=== PATIENT | female | born 1995 | race Caucasian/White ===

== ENCOUNTER 2019-04-25 00:01 | Emergency (ER) | payer MEDICAID, OTHER ==
--- NOTE | 2019-04-25 00:19 | EDM.PDOC ---
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 She said that she has had the cramping for the last 1 week and because she was late for her. She checked a home test was positive. She's had no upper abdominal pain no flank pain no urinary complaints no vomiting no diarrhea and no nausea. She' s had no vaginal bleeding or discharge and denies STD risks or a history of STD. She is a one para 0 and by her dates she would be 5 weeks 4 days if . Patient says that she was told by friends that she had cramping and she was that she should come into the ED. She says the cramping is bilateral and does not localize right or left she has no frequency urgency or dysuria Review of systems: As per history of present illness and below otherwise all systems reviewed and negative. Past medical history: As per history of present illness and as reviewed below otherwise noncontributory. Surgical history: As per history of present illness and as reviewed below otherwise noncontributory. Social history: No reported history of drug or alcohol abuse. Family history: As per history of present illness and as reviewed below otherwise noncontributory. Physical exam: General: Well-developed well-nourished female who is nontoxic and vital signs are noted by me HEENT: Atraumatic, normocephalic, , negative for conjunctival pallor or scleral icterus, mucous membranes moist, throat clear, neck supple, nontender, trachea midline. Lungs: Clear to auscultation, breath sounds equal bilaterally, chest nontender. Heart: S1S2, regular rate and rhythm no overt murmurs Abdomen: Soft, nondistended, nontender. Negative for masses or hepatosplenomegaly. Negative for costovertebral tenderness. Bowel sounds are normoactive and there is actually no tenderness rebound or guarding on my examination Pelvis: Stable nontender. Genitourinary: Deferred. Rectal: Deferred. Extremities: Atraumatic, negative for cords or calf pain. Neurovascular unremarkable. Neuro: Awake, alert, oriented. Cranial nerves II through XII unremarkable. Cerebellum unremarkable. Motor and sensory unremarkable throughout. Exam nonfocal. Diagnostics: CBC UA with reflex ABO Rh serum quantitative hCG CMP Therapeutics: 0128: Case was discussed with Dr. Altamirano who is on-call for OB and says that in light of her resulting history or physical exam and her testing results she would not do an emergent ultrasound and that they would be able to do that in the clinic next week. She said that she should be cautioned to return to the ED for changes in her clinical statement such as increased pain localization of pain or vaginal bleeding and I relayed this conversation to the patient. She is aware that she should be on pelvic rest and reasons to return. Impression: Pelvic pain in early Definitive disposition and diagnosis as appropriate pending reevaluation and review of above. Abdominal Pain Score (Numeric/FACES): 4 - Related Data Allergies Allergy/AdvReac Type Severity Reaction Status Date / Time No Known Allergies Allergy Verified 04/25/19 00:14 Home Meds: Home Meds . [No Known Home Meds] 04/25/19 [History] ED ROS GENERAL - Review of Systems Review Of Systems: ROS reveals no pertinent complaints other than HPI. ED EXAM, GENERAL - Physical Exam Exam: See Below (See dictation) Course - Vital Signs Last Recorded V/S: Last Vital Signs Temp 36.5 C 04/25/19 00:14 Pulse 83 04/25/19 00:14 Resp 18 04/25/19 00:14 BP 125/80 04/25/19 00:14 Pulse Ox 98 04/25/19 00:14 - Orders/Labs/Meds Labs: Laboratory Tests 04/25/19 04/25/19 04/25/19 Range/Units 00:05 00:24 00:24 WBC 11.18 H (4.0-11.0) K/uL RBC 4.39 (4.30-5.90) M/uL Hgb 13.5 (12.0-16.0) g/dL Hct 39.2 (36.0-46.0) % MCV 89.3 (80.0-98.0) fL MCH 30.8 (27.0-32.0) pg MCHC 34.4 (31.0-37.0) g/dL RDW Std Deviation 43.0 (28.0-62.0) fl RDW Coeff of Annamarie 13 (11.0-15.0) % Plt Count 274 (150-400) K/uL MPV 9.50 (7.40-12.00) fL Neut % (Auto) 63.3 (48.0-80.0) % Lymph % (Auto) 24.2 (16.0-40.0) % [place] % (Auto) 10.1 (0.0-15.0) % Eos % (Auto) 2.1 (0.0-7.0) % Baso % (Auto) 0.3 (0.0-1.5) % Neut # (Auto) 7.1 H (1.4-5.7) K/uL Lymph # (Auto) 2.7 H (0.6-2.4) K/uL [place] # (Auto) 1.1 H (0.0-0.8) K/uL Eos # (Auto) 0.2 (0.0-0.7) K/uL Baso # (Auto) 0.0 (0.0-0.1) K/uL Sodium (136-145) mmol/L Potassium (3.5-5.1) mmol/L Chloride (98-107) mmol/L Carbon Dioxide (21.0-32.0) mmol/L BUN (7.0-18.0) mg/dL Creatinine (0.6-1.0) mg/dL Est Cr Clr Drug Dosing mL/min Estimated GFR (MDRD) ml/min Glucose (74-106) mg/dL Calcium (8.5-10.1) mg/dL Total Bilirubin (0.2-1.0) mg/dL AST (15-37) IU/L ALT (14-63) IU/L Alkaline Phosphatase (46-116) U/L Total Protein (6.4-8.2) g/dL Albumin (3.4-5.0) g/dL Globulin (2.6-4.0) g/dL Albumin/Globulin Ratio (0.9-1.6) HCG, Quant 6332.0 mIU/mL Urine Color YELLOW Urine Appearance CLEAR Urine pH 6.0 (5.0-8.0) Ur Specific [place] 1.020 (1.001-1.035) Urine Protein NEGATIVE (NEGATIVE) mg/dL Urine Glucose (UA) NEGATIVE (NEGATIVE) mg/dL Urine Ketones NEGATIVE (NEGATIVE) mg/dL Urine Occult Blood NEGATIVE (NEGATIVE) Urine Nitrite NEGATIVE (NEGATIVE) Urine Bilirubin NEGATIVE (NEGATIVE) Urine Urobilinogen 0.2 (<2.0) EU/dL Ur Leukocyte Esterase NEGATIVE (NEGATIVE) Blood Type 04/25/19 04/25/19 Range/Units 00:24 00:24 WBC (4.0-11.0) K/uL RBC (4.30-5.90) M/uL Hgb (12.0-16.0) g/dL Hct (36.0-46.0) % MCV (80.0-98.0) fL MCH (27.0-32.0) pg MCHC (31.0-37.0) g/dL RDW Std Deviation (28.0-62.0) fl RDW Coeff of Annamarie (11.0-15.0) % Plt Count (150-400) K/uL MPV (7.40-12.00) fL Neut % (Auto) (48.0-80.0) % Lymph % (Auto) (16.0-40.0) % [place] % (Auto) (0.0-15.0) % Eos % (Auto) (0.0-7.0) % Baso % (Auto) (0.0-1.5) % Neut # (Auto) (1.4-5.7) K/uL Lymph # (Auto) (0.6-2.4) K/uL [place] # (Auto) (0.0-0.8) K/uL Eos # (Auto) (0.0-0.7) K/uL Baso # (Auto) (0.0-0.1) K/uL Sodium 136 (136-145) mmol/L Potassium 3.8 (3.5-5.1) mmol/L Chloride 104 (98-107) mmol/L Carbon Dioxide 20.7 L (21.0-32.0) mmol/L BUN 17 (7.0-18.0) mg/dL Creatinine 0.8 (0.6-1.0) mg/dL Est Cr Clr Drug Dosing 96.73 mL/min Estimated GFR (MDRD) > 60.0 ml/min Glucose 95 (74-106) mg/dL Calcium 9.8 (8.5-10.1) mg/dL Total Bilirubin 0.2 (0.2-1.0) mg/dL AST 22 (15-37) IU/L ALT 42 (14-63) IU/L Alkaline Phosphatase 62 (46-116) U/L Total Protein 7.7 (6.4-8.2) g/dL Albumin 4.0 (3.4-5.0) g/dL Globulin 3.7 (2.6-4.0) g/dL Albumin/Globulin Ratio 1.1 (0.9-1.6) HCG, Quant mIU/mL Urine Color Urine Appearance Urine pH (5.0-8.0) Ur Specific [place] (1.001-1.035) Urine Protein (NEGATIVE) mg/dL Urine Glucose (UA) (NEGATIVE) mg/dL Urine Ketones (NEGATIVE) mg/dL Urine Occult Blood (NEGATIVE) Urine Nitrite (NEGATIVE) Urine Bilirubin (NEGATIVE) Urine Urobilinogen (<2.0) EU/dL Ur Leukocyte Esterase (NEGATIVE) Blood Type A POSITIVE Departure - Departure Time of Disposition: 01:33 Disposition: Home, Self-Care 01 Condition: Good Clinical Impression: Pelvic pain during in first trimester, antepartum - Discharge Information Referrals: PCP,None [Primary Care Provider] - Forms: ED Department Discharge Additional Instructions: The following information is given to patients seen in the emergency department who are being discharged to home. This information is to outline your options for follow-up care. We provide all patients seen in our emergency department with a follow-up referral. The need for follow-up, as well as the timing and circumstances, are variable depending upon the specifics of your emergency department visit. If you don't have a primary care physician on staff, we will provide you with a referral. We always advise you to contact your personal physician following an emergency department visit to inform them of the circumstance of the visit and for follow-up with them and/or the need for any referrals to a consulting specialist. The emergency department will also refer you to a specialist when appropriate. This referral assures that you have the opportunity for followup care with a specialist. All of these measure are taken in an effort to provide you with optimal care, which includes your followup. Under all circumstances we always encourage you to contact your private physician who remains a resource for coordinating your care. When calling for followup care, please make the office aware that this follow-up is from your recent emergency room visit. If for any reason you are refused follow-up, please contact the [facility] emergency department at and ask to speak to the emergency department charge nurse. [facility]'s [address] [address] Push hydration and pelvic rest until you're followed up in the clinic. Please call the clinic using the number given to above and schedule a follow-up appointment next week as we discussed making sure to tell the gold buyer that your seen in the ED and Dr. Altamirano was called about you. Return to ER as needed and as we discussed.
[2019-04-25 01:16] LABS: BLOOD UREA NITROGEN,BUN 17 mg/dL (7.0-18.0); CARBON DIOXIDE,CO2 20.7 mmol/L (21.0-32.0); CHLORIDE,CL 104 mmol/L (98-107); GLUCOSE RANDOM 95 mg/dL (74-106); POTASSIUM,K 3.8 mmol/L (3.5-5.1); SODIUM,NA 136 mmol/L (136-145)
== END 2019-04-25 01:45 | disposition home or self-care (01) ==
LOC: MW.ED 00:01
DX: O99.89 Other specified diseases and conditions complicating pregnancy, childbirth and the puerperium (principal); R10.2 Pelvic and perineal pain; Z3A.01 Less than 8 weeks gestation of pregnancy
CPT/HCPCS: 36415; 80053; 81003; 84702; 85025; 86900; 86901; 99284

== ENCOUNTER 2019-06-06 00:54 | Emergency (ER) | payer MEDICAID ==
--- NOTE | 2019-06-06 01:42 | EDM.PDOC ---
ED HPI GENERAL MEDICAL PROBLEM - General Chief Complaint: Genitourinary Problem Stated Complaint: 11WKS AND HAVING DISCHARGES Time Seen by Provider: 06/06/19 01:40 - History of Present Illness INITIAL COMMENTS - FREE TEXT/NARRATIVE: HISTORY AND PHYSICAL: History of present illness: The patient is a 24-year-old female who is 11 weeks 5 days and is a patient of Dr. Altamirano at [facility] and had missed her last appointment and presents to the ED at this time with complaints of a whitish clear discharge and pain at her vaginal entry. She said that she had sex yesterday and the pain seemed to be worse and is on the skin at the entrance of her vagina. She is having no abdominal pain no vaginal bleeding no nausea vomiting flank pain or urinary complaints. She is with the same partner for the last one year and has not had an STD. Review of systems: As per history of present illness and below otherwise all systems reviewed and negative. Past medical history: As per history of present illness and as reviewed below otherwise noncontributory. Surgical history: As per history of present illness and as reviewed below otherwise noncontributory. Social history: No reported history of drug or alcohol abuse. Family history: As per history of present illness and as reviewed below otherwise noncontributory. Physical exam: General: Well-developed well-nourished female who is nontoxic and vital signs were noted by me. HEENT: Atraumatic, normocephalic, pupils reactive, negative for conjunctival pallor or scleral icterus, mucous membranes moist, throat clear, neck supple, nontender, trachea midline. Lungs: Clear to auscultation, breath sounds equal bilaterally, chest nontender. Heart: S1S2, regular, negative for clicks, rubs, or JVD. Abdomen: Soft, nondistended, nontender. Negative for masses or hepatosplenomegaly. Negative for costovertebral tenderness. Pelvis: Stable nontender. Genitourinary: On visual inspection of the perineal and vaginal area there are multiple vesicular plaque like areas seen at the introitus with some surrounding erythema and these are exquisitely tender. There is no gross bleeding or vaginal discharge seen. Rectal: Deferred. Extremities: Atraumatic, negative for cords or calf pain. Neurovascular unremarkable. Neuro: Awake, alert, oriented. Cranial nerves II through XII unremarkable. Cerebellum unremarkable. Motor and sensory unremarkable throughout. Exam nonfocal. Diagnostics: UA with reflex, wet prep, Therapeutics: Topical anesthetic per L&D 0210: Dr Kc was called about this case and advises Valtrex and topical pain management Impression: Genital herpes, first trimester stable Definitive disposition and diagnosis as appropriate pending reevaluation and review of above. 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: Musculoskeletal History: Reports: None Neurological History: Reports: None Psychiatric History: Reports: None Endocrine/Metabolic History: Reports: None Insulin Pump Model and Data Conversion Operator: None Hematologic History: Reports: None Immunologic History: Reports: None Oncologic (Cancer) History: Reports: None Dermatologic History: Reports: None - Infectious Disease History Infectious Disease History: Reports: None - Past Surgical History Head Surgeries/Procedures: Reports: None Social & Family History - Family History Family Medical History: Noncontributory - Tobacco Use Smoking Status *Q: Never Smoker - Caffeine Use Caffeine Use: Reports: None - Recreational Drug Use Recreational Drug Use: No ED ROS GENERAL - Review of Systems Review Of Systems: ROS reveals no pertinent complaints other than HPI. ED EXAM, GENERAL - Physical Exam Exam: See Below (see Dictation) Course - Vital Signs Last Recorded V/S: Last Vital Signs Temp 36.5 C 06/06/19 01:08 Pulse 88 06/06/19 01:08 Resp 17 06/06/19 01:08 BP 120/62 06/06/19 01:08 Pulse Ox 99 06/06/19 01:08 - Orders/Labs/Meds Orders: Active Orders 24 hr Category Date Time Status CHLAMYDIA AND GONORRHEA BY TMA Stat Lab 06/06/19 01:30 Received Labs: Laboratory Tests 06/06/19 06/06/19 Range/Units 01:10 01:30 Urine Color YELLOW Urine Appearance CLEAR Urine pH 6.0 (5.0-8.0) Ur Specific [place] 1.025 (1.001-1.035) Urine Protein NEGATIVE (NEGATIVE) mg/dL Urine Glucose (UA) NEGATIVE (NEGATIVE) mg/dL Urine Ketones NEGATIVE (NEGATIVE) mg/dL Urine Occult Blood NEGATIVE (NEGATIVE) Urine Nitrite NEGATIVE (NEGATIVE) Urine Bilirubin NEGATIVE (NEGATIVE) Urine Urobilinogen 0.2 (<2.0) EU/dL Ur Leukocyte Esterase NEGATIVE (NEGATIVE) Lala species DNA NEGATIVE (NEGATIVE) Gardnerella DNA Probe NEGATIVE (NEGATIVE) Trichomonas DNA Probe NEGATIVE (NEGATIVE) Departure - Departure Time of Disposition: : Disposition: Home, Self-Care 01 Condition: Good Clinical Impression: First trimester Genital herpes Qualifiers: Herpes simplex infection site: unspecified Qualified Code(s): A60.00 - Herpesviral infection of urogenital system, unspecified - Discharge Information Referrals: PCP,None [Primary Care Provider] - Forms: ED Department Discharge Additional Instructions: The following information is given to patients seen in the emergency department who are being discharged to home. This information is to outline your options for follow-up care. We provide all patients seen in our emergency department with a follow-up referral. The need for follow-up, as well as the timing and circumstances, are variable depending upon the specifics of your emergency department visit. If you don't have a primary care physician on staff, we will provide you with a referral. We always advise you to contact your personal physician following an emergency department visit to inform them of the circumstance of the visit and for follow-up with them and/or the need for any referrals to a consulting specialist. The emergency department will also refer you to a specialist when appropriate. This referral assures that you have the opportunity for followup care with a specialist. All of these measure are taken in an effort to provide you with optimal care, which includes your followup. Under all circumstances we always encourage you to contact your private physician who remains a resource for coordinating your care. When calling for followup care, please make the office aware that this follow-up is from your recent emergency room visit. If for any reason you are refused follow-up, please contact the [facility] emergency department at and ask to speak to the emergency department charge nurse. [facility] [address] [place] [id number] Please take the medication you were prescribed to help her with this viral infection and refrain from sexual intercourse until you are followed up in the clinic. Use medication given to you here in the ED to help with pain and try to leave the area open to air as much as possible. He may take [id number] Tylenol also for pain management. Please call and schedule a follow-up appointment with your provider at the women's health clinic next week and return to ER as needed and as discussed. - My Orders Last 24 Hours: My Active Orders 06/06/19 01:30 CHLAMYDIA AND GONORRHEA BY TMA Stat - Assessment/Plan Last 24 Hours: My Active Orders 06/06/19 01:30 CHLAMYDIA AND GONORRHEA BY TMA Stat
[2019-06-06] MEDS ORDERED: Benzocaine/Menthol 20%-0.5% Spray 78 GM Cannister TOP STA (02:30)
== END 2019-06-06 02:56 | disposition home or self-care (01) ==
LOC: MW.ED 00:54
DX: O98.311 Other infections with a predominantly sexual mode of transmission complicating pregnancy, first trimester (principal); A60.00 Herpesviral infection of urogenital system, unspecified; Z3A.11 11 weeks gestation of pregnancy
CPT/HCPCS: 81003; 87480; 87491; 87510; 87591; 87660; 99283; A9270

== ENCOUNTER 2019-12-25 04:02 | Inpatient (IN) | payer BC ==
[2019-12-25] MEDS ORDERED: Nalbuphine 10 MG/1 ML Vial IVPUSH PRN (15:28)
[2019-12-25] MEDS ORDERED: Misoprostol 25 MCG (1/4 of 100 MCG) Tab VAG PRN ×2 (15:28)
[2019-12-25] MEDS ORDERED: Sodium Chloride 0.9% 10 ML SDV IV PRN (15:28)
[2019-12-25] MEDS ORDERED: Methylergonovine 0.2 MG/1 ML Amp IM PRN (15:28)
[2019-12-25] MEDS ORDERED: Ampicillin 2 GM in Sodium Chloride 0.9% 100 ML IV ONE (15:28)
[2019-12-25] MEDS ORDERED: Lidocaine 1% 50 ML MDV INJECT PRN (15:28)
[2019-12-25] MEDS ORDERED: Misoprostol 200 MCG Tab PO PRN (15:28)
[2019-12-25] MEDS ORDERED: Carboprost Tromethamine 250 MCG/1 ML Amp IM PRN (15:28)
[2019-12-25] MEDS ORDERED: Tranexamic Acid 1,000 MG in Sodium Chloride 0.9% 100 ML IV PRN (15:28)
[2019-12-25] MEDS ORDERED: Sodium Chloride 0.9% 10 ML Syringe FLUSH PRN (15:28)
[2019-12-25] MEDS ORDERED: Sodium Chloride 0.9% 2.5 ML Syringe FLUSH PRN (15:28)
[2019-12-25] MEDS ORDERED: Terbutaline 1 MG/ML SDV SUBCUT PRN (15:28)
[2019-12-25] MEDS ORDERED: Butorphanol 1 MG/ML SDV IVPUSH PRN (15:28)
[2019-12-25] MEDS ORDERED: Misoprostol 25 MCG (1/4 of 100 MCG) Tab PO PRN (15:28)
[2019-12-25] MEDS ORDERED: Water For Irrigation,Sterile 1,000 ML Container IRR PRN (15:28)
[2019-12-25] MEDS ORDERED: Oxytocin/0.9 % Sodium Chloride 30 UNIT/500 ML BAG IV SCH ×2 (15:30)
--- NOTE | 2019-12-25 16:48 | PCM.LDHP ---
L&D History of Present Illness - General Date of Service: 12/25/19 Admit Problem/Dx: Patient Status Order with Admit Dx/Problem 12/25/19 15:28 Patient Status [ADT] Routine Admission Diagnosis/Problem Admission Diagnosis/Problem - planned 12/25/19 16:43 24 yo EDC 12/21/2019 40 4/7wks IOL for post dates and early labor, A+, R- equivocal, GBS pos Source of Information: Patient History Limitations: Reports: No Limitations - History of Present Illness Timing/Duration: Reports: minutes: Location, : Reports: Abdomen Quality: Reports: Ache, Burning, Stabbing Severity: Mild Improves with: Reports: None Worsens with: Reports: None Associated Symptoms: Reports: N - Related Data Allergies/Adverse Reactions: Allergies Allergy/AdvReac Type Severity Reaction Status Date / Time No Known Allergies Allergy Verified 12/25/19 15:26 Home Medications: Home Meds Pnv No.95/Ferrous Fum/Folic AC [ Multivitamin Tablet] 1 each PO DAILY [History] Past Medical History HEENT History: Reports: None Cardiovascular History: Reports: None Respiratory History: Reports: None Gastrointestinal History: Reports: None Genitourinary History: Reports: None 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: Musculoskeletal History: Reports: None Neurological History: Reports: None Psychiatric History: Reports: None Endocrine/Metabolic History: Reports: None Insulin Pump Model and Flow Match Sofa 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: None Hematologic History: Reports: None Immunologic History: Reports: None Oncologic (Cancer) History: Reports: None Dermatologic History: Reports: None - Infectious Disease History Infectious Disease History: Reports: None - Past Surgical History Head Surgeries/Procedures: Reports: None Social & Family History - Family History Family Medical History: Noncontributory - Caffeine Use Caffeine Use: Reports: None H&P Review of Systems - Review of Systems: Review Of Systems: See Below General: Reports: No Symptoms HEENT: Reports: No Symptoms Pulmonary: Reports: No Symptoms Cardiovascular: Reports: No Symptoms Gastrointestinal: Reports: No Symptoms Genitourinary: Reports: No Symptoms Musculoskeletal: Reports: No Symptoms Skin: Reports: No Symptoms Psychiatric: Reports: No Symptoms Neurological: Reports: No Symptoms Hematologic/Lymphatic: Reports: No Symptoms Immunologic: Reports: No Symptoms L&D Exam - Exam Exam: See Below - Vital Signs Weight: 81.647 kg - OB Specific Contraction Intensity: Mild Movement: Active Heart Tones: Present Heart Tones per Min: 140 Heart Rate (FHR) Variability: Moderate (6-25 bmp) Presentation: Vertex Estimated Weight: 3200 - Friend Score Friend Score Cervix Position: Midposition Friend Score Consistency: Soft Friend Score Effacement: >80% Friend Score Dilation: 1-2 cm Friend Score Infant's Station: -2 Friend Score Total: 8 - Exam General: Alert, Oriented, Cooperative HEENT: Hearing Intact Lungs: Clear to Auscultation, Normal Respiratory Effort Cardiovascular: Regular Rate, Regular Rhythm, Normal S1, Normal S2 GI/Abdominal Exam: Soft, Non-Tender Rectal Exam: Deferred Genitourinary: Normal external exam, Normal bimanual exam, Deferred. No: Cervical fluid, Vaginal bleeding Back Exam: Normal Inspection, Full Range of Motion Extremities: Normal Inspection, Normal Range of Motion, Non-Tender, No Pedal Edema Skin: Warm, Dry, Intact Neurological: Cranial Nerves Intact, Reflexes Equal Bilateral, Strength Equal Bilateral, Normal Gait, Normal Speech, Normal Tone, Sensation Intact Psychiatric: Alert, Normal Affect, Normal Mood - Problem List (1) Supervision of normal IUP (intrauterine ) in primigravida SNOMED Code(s): 71821281, 491706591, 242008034, 522653042 ICD Code: Z34.00 - ENCNTR FOR SUPRVSN OF NORMAL FIRST , UNSP TRIMESTER Status: Acute Priority: High Current Visit: Yes Qualifiers: Trimester: third trimester Qualified Code(s): Z34.03 - Encounter for supervision of normal first , third trimester Problem List Initiated/Reviewed/Updated: Yes Orders Last 24hrs: Active Orders 24 hr Category Date Time Status Patient Status [ADT] Routine ADT 12/25/19 15:28 Active Communication Order [RC] ASDIRECTED Care 12/25/19 15:28 Active Communication Order [RC] ASDIRECTED Care 12/25/19 15:28 Active Communication Order [RC] ASDIRECTED Care 12/25/19 15:28 Active Heart Tones [RC] CONTINUOUS Care 12/25/19 15:28 Active Non Stress Test [RC] PER UNIT ROUTINE Care 12/25/19 15:28 Active May Shower [RC] ASDIRECTED Care 12/25/19 15:28 Active Notify Provider [RC] PRN Care 12/25/19 15:28 Active Notify Provider [RC] PRN Care 12/25/19 15:28 Active Notify Provider [RC] PRN Care 12/25/19 15:28 Active Notify Provider [RC] STAT Care 12/25/19 15:28 Active Oxygen Therapy [RC] ASDIRECTED Care 12/25/19 15:28 Active Up ad Alina [RC] ASDIRECTED Care 12/25/19 15:28 Active Vaginal Exam [RC] PRN Care 12/25/19 15:28 Active Vital Signs [RC] PER UNIT ROUTINE Care 12/25/19 15:28 Active CBC W/O DIFF,HEMOGRAM [HEME] Routine Lab 12/25/19 15:28 Ordered RPR (SYPHILIS SERO) W/ RFLX [REF] Routine Lab 12/25/19 15:28 Ordered TYPE AND SCREEN [BBK] Routine Lab 12/25/19 15:28 Ordered Butorphanol [Stadol] Med 12/25/19 15:28 Active 1 mg IVPUSH Q1H PRN Carboprost Tromethamine [Hemabate DS] Med 12/25/19 15:28 Active 250 mcg IM ASDIRECTED PRN Lactated Ringers [Ringers, Lactated] 1,000 ml Med 12/25/19 15:30 Active IV ASDIRECTED Lidocaine 1% [Xylocaine 1%] Med 12/25/19 15:28 Active 50 ml INJECT ONETIME PRN Methylergonovine [Methergine] Med 12/25/19 15:28 Active 0.2 mg IM ASDIRECTED PRN Nalbuphine [Nubain] Med 12/25/19 15:28 Active 10 mg IVPUSH Q1H PRN Oxytocin/0.9 % Sodium Chloride [Oxytocin 30 Unit/500 ML Med 12/25/19 15:30 Active -NS] 30 unit in 500 ml IV TITRATE Oxytocin/0.9 % Sodium Chloride [Oxytocin 30 Unit/500 ML Med 12/25/19 15:30 Active -NS] 30 unit in 500 ml IV TITRATE Sodium Chloride 0.9% [Normal Saline] Med 12/25/19 15:28 Active 10 ml IV ASDIRECTED PRN Sodium Chloride 0.9% [Saline Flush] Med 12/25/19 15:28 Active 10 ml FLUSH ASDIRECTED PRN Sodium Chloride 0.9% [Saline Flush] Med 12/25/19 15:28 Active 2.5 ml FLUSH ASDIRECTED PRN Terbutaline [Brethine] Med 12/25/19 15:28 Active 0.25 mg SUBCUT ASDIRECTED PRN Tranexamic Acid [Cyklokapron] 1,000 mg Med 12/25/19 15:28 Active Sodium Chloride 0.9% [Normal Saline] 100 ml IV ONETIME Water For Irrigation,Sterile [Sterile Water for Med 12/25/19 15:28 Active Irrigation] 1,000 ml IRR ASDIRECTED PRN miSOPROStoL [Cytotec] Med 12/25/19 15:28 Active 200 mcg PO ONETIME PRN miSOPROStoL [Cytotec] Med 12/25/19 15:28 Active 25 mcg PO Q4H PRN miSOPROStoL [Cytotec] Med 12/25/19 15:28 Active 25 mcg VAG ONETIME PRN miSOPROStoL [Cytotec] Med 12/25/19 15:28 Active 25 mcg VAG Q4H PRN Scalp Electrode [WOMSER] Per Unit Routine Oth 12/25/19 15:28 Ordered Medication Administration Instruction [OM.PC] Q3H Oth 12/25/19 15:30 Ordered Peripheral IV Insertion Adult [OM.PC] Routine Oth 12/25/19 15:28 Ordered Resuscitation Status Routine Resus Stat 12/25/19 15:28 Ordered Medication Orders Butorphanol Tartrate (Stadol) 1 mg IVPUSH Q1H PRN PRN Reason: Pain Carboprost Tromethamine (Hemabate Ds) 250 mcg IM ASDIRECTED PRN PRN Reason: Post Hemorrhage Lactated Ringer's (Ringers, Lactated) 1,000 mls @ 150 mls/hr IV ASDIRECTED PRABHA Oxytocin/Sodium Chloride (Oxytocin 30 Unit/500 Ml-Ns) 30 unit in 500 mls @ 999 mls/hr IV TITRATE PRABHA Oxytocin/Sodium Chloride (Oxytocin 30 Unit/500 Ml-Ns) 30 unit in 500 mls @ 2 mls/hr IV TITRATE PRABHA; Protocol Tranexamic Acid 1,000 mg/ (Sodium Chloride) 110 mls @ 660 mls/hr IV ONETIME PRN PRN Reason: Bleeding Lidocaine HCl (Xylocaine 1%) 50 ml INJECT ONETIME PRN PRN Reason: Laceration repair Methylergonovine Maleate (Methergine) 0.2 mg IM ASDIRECTED PRN PRN Reason: Post Hemorrhage Misoprostol (Cytotec) 200 mcg PO ONETIME PRN PRN Reason: Post Hemorrhage Misoprostol (Cytotec) 25 mcg VAG ONETIME PRN PRN Reason: Cervical Ripening Misoprostol (Cytotec) 25 mcg VAG Q4H PRN PRN Reason: Cervical Ripening Misoprostol (Cytotec) 25 mcg PO Q4H PRN PRN Reason: Cervical Ripening Nalbuphine HCl (Nubain) 10 mg IVPUSH Q1H PRN PRN Reason: Pain (severe 7-10) Sodium Chloride (Saline Flush) 10 ml FLUSH ASDIRECTED PRN PRN Reason: Keep Vein Open Sodium Chloride (Saline Flush) 2.5 ml FLUSH ASDIRECTED PRN PRN Reason: Keep Vein Open Sodium Chloride (Normal Saline) 10 ml IV ASDIRECTED PRN PRN Reason: IV Use Sterile Water (Sterile Water For Irrigation) 1,000 ml IRR ASDIRECTED PRN PRN Reason: delivery Terbutaline Sulfate (Brethine) 0.25 mg SUBCUT ASDIRECTED PRN PRN Reason: Tacysystole Assessment/Plan Comment:: IOL/Early labor A: 24 yo EDC 12/21/2019 40 4/7wks IOL for post dates and early labor, A+, R- equivocal, GBS pos P: Admit, Amp for GBS pos, Pitocin if needed. Epidural prn, Anticipate . Dr Schneider updated
[2019-12-25] MEDS: Lactated Ringers 1,000 ML IV SCH ×2 (17:10→22:51)
[2019-12-25] MEDS: Ampicillin 1 GM in Sodium Chloride 0.9% 50 ML IV SCH (21:09)
[2019-12-25] MEDS ORDERED: Ropivacaine HCl/PF 100 ML ONE (22:18)
[2019-12-25] MEDS ORDERED: Ropivacaine 0.2% PF 2 MG/ML 20 ML SDV ONE (22:18)
[2019-12-25] MEDS ORDERED: fentaNYL 100 MCG/2 ML SDV ONE (22:18)
--- NOTE | 2019-12-25 23:09 | PCM.PREANE ---
Preanesthetic Assessment - Procedure Proposed Procedure: MICHAEL - Anesthesia/Transfusion/Family Hx Anesthesia History: Prior Anesthesia Without Reaction Family History of Anesthesia Reaction: No Transfusion History: No Prior Transfusion(s) Intubation History: Unknown - Review of Systems General: No Symptoms Pulmonary: No Symptoms Cardiovascular: No Symptoms Gastrointestinal: No Symptoms Neurological: No Symptoms Other: Reports: Anxiety - Physical Assessment NPO Status Date: 12/25/19 NPO Status Time: 23:07 (Liquids) Height: 1.65 m Weight: 81.647 kg ASA Class: 2 Mental Status: Alert & Oriented x3 Airway Class: Mallampati = 2 Dentition: Reports: Normal Dentition Thyro-Mental Finger Breadths: 3 Mouth Opening Finger Breadths: 3 ROM/Head Extension: Full Lungs: Clear to Auscultation Cardiovascular: Regular Rate - Lab Values: Laboratory Last Values WBC 10.81 K/uL (4.0-11.0) 12/25/19 16:44 RBC 4.33 M/uL (4.30-5.90) 12/25/19 16:44 Hgb 13.2 g/dL (12.0-16.0) 12/25/19 16:44 Hct 39.2 % (36.0-46.0) 12/25/19 16:44 MCV 90.5 fL (80.0-98.0) 12/25/19 16:44 MCH 30.5 pg (27.0-32.0) 12/25/19 16:44 MCHC 33.7 g/dL (31.0-37.0) 12/25/19 16:44 RDW Std Deviation 52.0 fl (28.0-62.0) 12/25/19 16:44 RDW Coeff of Annamarie 16 % (11.0-15.0) H 12/25/19 16:44 Plt Count 225 K/uL (150-400) 12/25/19 16:44 MPV 11.00 fL (7.40-12.00) 12/25/19 16:44 Nucleated RBC % 0.0 /100WBC 12/25/19 16:44 Nucleated RBCs # 0 K/uL 12/25/19 16:44 Blood Type A POSITIVE 12/25/19 16:44 Antibody Screen NEGATIVE 12/25/19 16:44 - Allergies Allergies/Adverse Reactions: Allergies Allergy/AdvReac Type Severity Reaction Status Date / Time No Known Allergies Allergy Verified 12/25/19 15:26 - Blood Blood Available: No Product(s) Available: None - Anesthesia Plan Pre-Op Medication Ordered: None - Acknowledgements Anesthesia Type Planned: Epidural Pt an Appropriate Candidate for the Planned Anesthesia: Yes Alternatives and Risks of Anesthesia Discussed w Pt/Guardian: Yes Pt/Guardian Understands and Agrees with Anesthesia Plan: Yes Additional Comments: Discussed. ? answered. Permit signed. Acceptable candidate. 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: Musculoskeletal History: Reports: None Neurological History: Reports: None Psychiatric History: Reports: None Endocrine/Metabolic History: Reports: None Hematologic History: Reports: None Immunologic History: Reports: None Oncologic (Cancer) History: Reports: None Dermatologic History: Reports: None - Infectious Disease History Infectious Disease History: Reports: None - Past Surgical History Head Surgeries/Procedures: Reports: None - SUBSTANCE USE Smoking Status *Q: Former Smoker Tobacco Use Within Last Twelve Months: No Second Hand Smoke Exposure: Yes Recreational Drug Use History: No - HOME MEDS Home Medications: Home Meds Pnv No.95/Ferrous Fum/Folic AC [ Multivitamin Tablet] 1 each PO DAILY [History] - CURRENT (IN HOUSE) MEDS Current Meds: Current Medications Butorphanol Tartrate (Stadol) 1 mg IVPUSH Q1H PRN PRN Reason: Pain Last Admin: 12/25/19 20:34 Dose: 1 mg Carboprost Tromethamine (Hemabate Ds) 250 mcg IM ASDIRECTED PRN PRN Reason: Post Hemorrhage Lactated Ringer's (Ringers, Lactated) 1,000 mls @ 150 mls/hr IV ASDIRECTED PRABHA Last Admin: 12/25/19 22:51 Dose: 150 mls/hr Oxytocin/Sodium Chloride (Oxytocin 30 Unit/500 Ml-Ns) 30 unit in 500 mls @ 999 mls/hr IV TITRATE PRABHA Oxytocin/Sodium Chloride (Oxytocin 30 Unit/500 Ml-Ns) 30 unit in 500 mls @ 2 mls/hr IV TITRATE PRABHA; Protocol Tranexamic Acid 1,000 mg/ (Sodium Chloride) 110 mls @ 660 mls/hr IV ONETIME PRN PRN Reason: Bleeding Ampicillin Sodium 1 gm/ Sodium (Chloride) 50 mls @ 100 mls/hr IV Q4H PRABHA Last Admin: 12/25/19 21:09 Dose: 100 mls/hr Lidocaine HCl (Xylocaine 1%) 50 ml INJECT ONETIME PRN PRN Reason: Laceration repair Methylergonovine Maleate (Methergine) 0.2 mg IM ASDIRECTED PRN PRN Reason: Post Hemorrhage Misoprostol (Cytotec) 200 mcg PO ONETIME PRN PRN Reason: Post Hemorrhage Misoprostol (Cytotec) 25 mcg VAG ONETIME PRN PRN Reason: Cervical Ripening Last Admin: 12/25/19 17:49 Dose: 25 mcg Misoprostol (Cytotec) 25 mcg VAG Q4H PRN PRN Reason: Cervical Ripening Misoprostol (Cytotec) 25 mcg PO Q4H PRN PRN Reason: Cervical Ripening Last Admin: 12/25/19 17:49 Dose: 25 mcg Nalbuphine HCl (Nubain) 10 mg IVPUSH Q1H PRN PRN Reason: Pain (severe 7-10) Sodium Chloride (Saline Flush) 10 ml FLUSH ASDIRECTED PRN PRN Reason: Keep Vein Open Sodium Chloride (Saline Flush) 2.5 ml FLUSH ASDIRECTED PRN PRN Reason: Keep Vein Open Sodium Chloride (Normal Saline) 10 ml IV ASDIRECTED PRN PRN Reason: IV Use Sterile Water (Sterile Water For Irrigation) 1,000 ml IRR ASDIRECTED PRN PRN Reason: delivery Terbutaline Sulfate (Brethine) 0.25 mg SUBCUT ASDIRECTED PRN PRN Reason: Tacysystole Discontinued Medications Fentanyl (Sublimaze) Confirm Administered Dose 100 mcg .ROUTE .STK-MED ONE Stop: 12/25/19 22:19 Ampicillin Sodium 2 gm/ Sodium (Chloride) 100 mls @ 200 mls/hr IV ONETIME ONE Stop: 12/25/19 15:57 Last Admin: 12/25/19 17:10 Dose: 200 mls/hr Ropivacaine (Naropin 0.2%) Confirm Administered Dose 100 mls @ as directed .ROUTE .STK-MED ONE Stop: 12/25/19 22:19 Ropivacaine (Naropin 0.2%) Confirm Administered Dose 20 ml .ROUTE .K-MED ONE Stop: 12/25/19 22:19
--- NOTE | 2019-12-25 23:19 | PCM.SN ---
- Free Text/Narrative Note: Active Labor requesting MICHAEL. Dilated 3-4cm. 40 4/. Pain 10/10. Discussed. ? answered. Permit signed. Placed in sitting position via [place] technique with saline/air, reconfirmed with saline on 2nd pass. Pass #1 had L sided ache. Needle repositioned. Catheter threaded with ease. TEST NEGATIVE. Bolus given without issues over 9 minutes. Pain 2/10. Pump on @ 2318, 8ml/hr with q15m 4ml bolus. Pain 0-110. VSS. No problems noted.
[2019-12-26] MEDS: Ampicillin 1 GM in Sodium Chloride 0.9% 50 ML IV SCH (01:00)
[2019-12-26] MEDS: Lactated Ringers 1,000 ML IV SCH (02:37)
[2019-12-26] MEDS ORDERED: Witch Hazel Medicated Pads 40/Jar TOP PRN (04:14)
[2019-12-26] MEDS ORDERED: Benzocaine/Menthol 20%-0.5% Spray 78 GM Cannister TOP PRN (04:14)
[2019-12-26] MEDS ORDERED: oxyCODONE 5 MG Tab PO PRN (04:14)
[2019-12-26] MEDS ORDERED: Acetaminophen 500 MG Tab PO PRN ×2 (04:14)
[2019-12-26] MEDS ORDERED: Ibuprofen 400 MG Tab PO PRN (04:14)
[2019-12-26] MEDS ORDERED: Docusate Sodium 100 MG Cap PO PRN (04:14)
[2019-12-26] MEDS ORDERED: Bisacodyl 10 MG Supp RECTAL PRN (04:14)
[2019-12-26] MEDS ORDERED: Lanolin 100% Cream 7 GM Tube TOP PRN (04:14)
[2019-12-26] MEDS: Ibuprofen 800 MG Tab PO PRN ×3 (05:41→21:01)
--- NOTE | 2019-12-26 06:15 | OR ---
SURGEON: Anil Schneider MD DATE OF PROCEDURE: Ms. Putnam is a 24-year-old primigravida. She is followed in our clinic primarily by our nurse midwifery service. The patient is primigravida, 40 and 5. She is GBS positive and the patient is admitted with spontaneous rupture of the membrane. At the time of the admission, she was 2 to 3 cm, vertex. The patient started on antibiotic as per protocol and she later on required Cytotec and Pitocin for induction of labor. The patient progressed and she became complete. She had meconium stain and she started having deceleration with contraction. I was consulted for evaluation and possibility of vacuum extraction. At the time of my arrival, vital signs were stable. heart rate was category 1. Examination revealed that the patient was vertex, +1 to +2 with pushing and highly suspicious for an occiput posterior presentation. After explaining to the patient the vacuum extraction and the formulator compounder was in attendance for the delivery, we proceeded to place Kiwi vacuum extraction, and with the patient pushing, I was able to bring the patient to +2 to +3 and head was when the vacuum was popped off and so we did the vaginal delivery and completed the delivery rather spontaneously. An episiotomy was needed to accomplish the delivery. Fetus cried immediately and scores were reported to be 8 and 9. Weight is not available. A tight and short nuchal cord was noted. The presentation was in an occiput posterior. The placenta delivered spontaneous, complete, and intact without any problem. Episiotomy was repaired with 3-0 Vicryl in layers without any problem. Estimated blood loss was 300 to 350 mL. heart rate for the entire process of labor was category 1; later on, when the patient was delivering, it was alternating between category 1 and category 2. There was no complication in the delivery or the of this child. MISBAH / DUDLEY /[id number]
--- NOTE | 2019-12-26 12:13 | PCM.SN ---
- Free Text/Narrative Note: Called @ 03:45 for standby for VAC delivery vs . Delivered without issues.
--- NOTE | 2019-12-26 12:14 | PCM48HPAN ---
Post Anesthesia Note - EVALUATION WITHIN 48HRS OF ANESTHETIC Vital Signs in Normal Range: Yes Patient Participated in Evaluation: Yes Respiratory Function Stable: Yes Airway Patent: Yes Cardiovascular Function Stable: Yes Hydration Status Stable: Yes Pain Control Satisfactory: Yes Nausea and Vomiting Control Satisfactory: Yes Mental Status Recovered: Yes Vital Signs: Last Vital Signs Temp 36.6 C 12/26/19 09:00 Pulse 85 12/26/19 09:00 Resp 16 12/26/19 09:00 BP 104/57 L 12/26/19 09:00 Pulse Ox 96 12/26/19 09:00 - COMMENTS/OBSERVATIONS Free Text/Narrative:: Doing well. No problems post.
[2019-12-27] MEDS: Ibuprofen 800 MG Tab PO PRN (08:32)
--- NOTE | 2019-12-27 11:01 | PCM.DCSUM1 ---
Discharge Summary - Hospital Course Free Text/Narrative:: Discharge home with . Follow up in 6 weeks for . Diagnosis: Stroke: No Modified Andie Scale: No Symptoms at All Modified Hull Scale Score: 0 - Discharge Data Discharge Date: 12/27/19 Discharge Disposition: Home, Self-Care 01 Condition: Good - Referral to Home Health Primary Care Physician: Anil Schneider MD - Discharge Diagnosis/Problem(s) (1) Supervision of normal IUP (intrauterine ) in primigravida SNOMED Code(s): 42368363, 671939968, 771447934, [id number] ICD Code: Z34.00 - ENCNTR FOR SUPRVSN OF NORMAL FIRST , UNSP TRIMESTER Status: Acute Priority: High Current Visit: Yes Qualifiers: Trimester: third trimester Qualified Code(s): Z34.03 - Encounter for supervision of normal first , third trimester - Patient Instructions Diet: Usual Diet as Tolerated Activity: As Tolerated, No Strenuous Activities, Rest and Relax Today Driving: May Drive Today Showering/Bathing: May Shower Notify Provider of: Fever, Increased Pain, Swelling and Redness, Nausea and/or Vomiting Other/Special Instructions: Discharge home with infant. Follow up in 6 weeks for . - Discharge Plan *PRESCRIPTION DRUG MONITORING PROGRAM REVIEWED*: Not Applicable *COPY OF PRESCRIPTION DRUG MONITORING REPORT IN PATIENT MIKE: Not Applicable Home Medications: Home Meds Pnv No.95/Ferrous Fum/Folic AC [ Multivitamin Tablet] 1 each PO DAILY [History] Oxygen Therapy Mode: Room Air - Discharge Summary/Plan Comment DC Time >30 min.: Yes - General Info Date of Service: 12/27/19 Admission Dx/Problem (Free Text: Patient Status Order with Admit Dx/Problem 12/25/19 15:28 Patient Status [ADT] Routine Admission Diagnosis/Problem Admission Diagnosis/Problem - planned 12/25/19 16:43 24 yo EDC 12/21/2019 40 4/7wks IOL for post dates and early labor, A+, R- equivocal, GBS pos Functional Status: Reports: Pain Controlled, Tolerating Diet, Ambulating, Urinating - Review of Systems General: Reports: No Symptoms HEENT: Reports: No Symptoms Pulmonary: Reports: No Symptoms Cardiovascular: Reports: No Symptoms Gastrointestinal: Reports: No Symptoms Genitourinary: Reports: No Symptoms Musculoskeletal: Reports: No Symptoms Skin: Reports: No Symptoms Neurological: Reports: No Symptoms Psychiatric: Reports: No Symptoms - Patient Data Vitals - Most Recent: Last Vital Signs Temp 36.3 C 12/27/19 08:21 Pulse 62 12/27/19 08:21 Resp 14 12/27/19 08:21 BP 116/81 12/27/19 08:21 Pulse Ox 98 12/27/19 08:21 Weight - Most Recent: 81.647 kg Med Orders - Current: Current Medications Acetaminophen (Tylenol Extra Strength) 500 mg PO Q4H PRN PRN Reason: Pain Acetaminophen (Tylenol Extra Strength) 1,000 mg PO Q4H PRN PRN Reason: Pain Last Admin: 12/26/19 17:39 Dose: 1,000 mg Benzocaine/Menthol (Dermoplast Pain Relief 20%-0.5% [place]) 78 gm TOP ASDIRECTED PRN PRN Reason: Perineal Comfort Measure Last Admin: 12/26/19 05:42 Dose: 1 spray Bisacodyl (Dulcolax) 10 mg RECTAL ONETIME PRN PRN Reason: Constipation Docusate Sodium (Colace) 100 mg PO BID PRN PRN Reason: Constipation Last Admin: 12/27/19 08:33 Dose: 100 mg Emollient Ointment (Lansinoh Hpa) 0 gm TOP ASDIRECTED PRN PRN Reason: Sore Nipples Last Admin: 12/26/19 05:40 Dose: 1 applic Ibuprofen (Motrin) 400 mg PO Q4H PRN PRN Reason: Pain Ibuprofen (Motrin) 800 mg PO Q6H PRN PRN Reason: Pain Last Admin: 12/27/19 08:32 Dose: 800 mg Oxycodone HCl (Oxycodone) 5 mg PO Q2H PRN PRN Reason: Pain Witch Candice (Tucks) 1 pad TOP ASDIRECTED PRN PRN Reason: comfort care Last Admin: 12/26/19 05:42 Dose: 1 disk Discontinued Medications Butorphanol Tartrate (Stadol) 1 mg IVPUSH Q1H PRN PRN Reason: Pain Last Admin: 12/25/19 20:34 Dose: 1 mg Carboprost Tromethamine (Hemabate Ds) 250 mcg IM ASDIRECTED PRN PRN Reason: Post Hemorrhage Fentanyl (Sublimaze) Confirm Administered Dose 100 mcg .ROUTE .STK-MED ONE Stop: 12/25/19 22:19 Ampicillin Sodium 2 gm/ Sodium (Chloride) 100 mls @ 200 mls/hr IV ONETIME ONE Stop: 12/25/19 15:57 Last Admin: 12/25/19 17:10 Dose: 200 mls/hr Lactated Ringer's (Ringers, Lactated) 1,000 mls @ 150 mls/hr IV ASDIRECTED PRABHA Last Admin: 12/26/19 02:37 Dose: 150 mls/hr Oxytocin/Sodium Chloride (Oxytocin 30 Unit/500 Ml-Ns) 30 unit in 500 mls @ 999 mls/hr IV TITRATE PRABHA Last Infusion: 12/26/19 04:12 Dose: 500 mls/hr Oxytocin/Sodium Chloride (Oxytocin 30 Unit/500 Ml-Ns) 30 unit in 500 mls @ 2 mls/hr IV TITRATE PRABHA; Protocol Tranexamic Acid 1,000 mg/ (Sodium Chloride) 110 mls @ 660 mls/hr IV ONETIME PRN PRN Reason: Bleeding Ampicillin Sodium 1 gm/ Sodium (Chloride) 50 mls @ 100 mls/hr IV Q4H [facility] Last Admin: 12/26/19 01:00 Dose: 100 mls/hr Ropivacaine (Naropin 0.2%) Confirm Administered Dose 100 mls @ as directed .ROUTE .[facility] ONE Stop: 12/25/19 22:19 Lidocaine HCl (Xylocaine 1%) 50 ml INJECT ONETIME PRN PRN Reason: Laceration repair Methylergonovine Maleate (Methergine) 0.2 mg IM ASDIRECTED PRN PRN Reason: Post Hemorrhage Misoprostol (Cytotec) 200 mcg PO ONETIME PRN PRN Reason: Post Hemorrhage Misoprostol (Cytotec) 25 mcg VAG ONETIME PRN PRN Reason: Cervical Ripening Last Admin: 12/25/19 17:49 Dose: 25 mcg Misoprostol (Cytotec) 25 mcg VAG Q4H PRN PRN Reason: Cervical Ripening Misoprostol (Cytotec) 25 mcg PO Q4H PRN PRN Reason: Cervical Ripening Last Admin: 12/25/19 17:49 Dose: 25 mcg Nalbuphine HCl (Nubain) 10 mg IVPUSH Q1H PRN PRN Reason: Pain (severe 7-10) Ropivacaine (Naropin 0.2%) Confirm Administered Dose 20 ml [address] .[facility] ONE Stop: 12/25/19 22:19 Sodium Chloride (Saline Flush) 10 ml FLUSH ASDIRECTED PRN PRN Reason: Keep Vein Open Sodium Chloride (Saline Flush) 2.5 ml FLUSH ASDIRECTED PRN PRN Reason: Keep Vein Open Sodium Chloride (Normal Saline) 10 ml IV ASDIRECTED PRN PRN Reason: IV Use Sterile Water (Sterile Water For Irrigation) 1,000 ml IRR ASDIRECTED PRN PRN Reason: delivery Terbutaline Sulfate (Brethine) 0.25 mg SUBCUT ASDIRECTED PRN PRN Reason: Tacysystole - Exam General: Reports: Alert, Oriented, Cooperative, No Acute Distress Lungs: Reports: Normal Respiratory Effort GI/Abdominal Exam: Soft, Non-Tender (Female) Exam: Vaginal Bleeding, Vaginal Lesions (Inspection noted intact and healing well. No drainage or discharge.) Rectal (Female) Exam: Deferred Back Exam: Reports: Normal Inspection, Full Range of Motion Extremities: Normal Inspection, Normal Range of Motion, Non-Tender, No Pedal Edema Skin: Reports: Warm, Dry, Intact Wound/Incisions: Reports: Healing Well. Denies: No Drainage, Erythema Neurological: Reports: No New Focal Deficit, Normal Gait, Normal Speech, Normal Tone, Strength Equal Bilateral, Sensation Intact Psy/Mental Status: Reports: Alert, Normal Affect, Normal Mood
== END 2019-12-27 12:30 | disposition home or self-care (01) | DRG 560 ==
LOC: MW.OB 04:02 → OBSVTOIN 12-26 04:02 → MW.OB 12-26 06:41
PROVIDERS: ADMIT Obstetrics & Gynecology; ATTEND Advanced Practice Midwife
PROC: 10D07Z6 Extraction of Products of Conception, Vacuum, Via Natural or Artificial Opening (ICD-10-PCS; principal; 2019-12-26)
PROC: 0W8NXZZ Division of Female Perineum, External Approach (ICD-10-PCS; 2019-12-26)
PROC: 3E033VJ Introduction of Other Hormone into Peripheral Vein, Percutaneous Approach (ICD-10-PCS; 2019-12-26)
PROC: 3E0R3BZ Introduction of Anesthetic Agent into Spinal Canal, Percutaneous Approach (ICD-10-PCS; 2019-12-26)
PROC: 00HU33Z Insertion of Infusion Device into Spinal Canal, Percutaneous Approach (ICD-10-PCS; 2019-12-26)
DX: O48.0 Post-term pregnancy (principal); O99.824 Streptococcus B carrier state complicating childbirth; O69.1XX0 Labor and delivery complicated by cord around neck, with compression, not applicable or unspecified; O77.0 Labor and delivery complicated by meconium in amniotic fluid; O76 Abnormality in fetal heart rate and rhythm complicating labor and delivery; Z37.0 Single live birth; Z3A.40 40 weeks gestation of pregnancy; Z79.899 Other long term (current) drug therapy; O69.3XX0 Labor and delivery complicated by short cord, not applicable or unspecified
CPT/HCPCS: 01967; 36415; 51702; 59025; 59409; 85027; 86592; 86593; 86850; 86900; 86901; A9270-GY; J0290; J0595; J2590; J2795; J3010; J7050; J7120